=== PATIENT | female | born 1995 | race African-American/Black ===

== ENCOUNTER 2019-04-05 22:20 | Inpatient (IN) | payer MEDICAID, SELFPAY ==
[2019-04-05 22:21] VITALS: BP 118/71; PULSE 74; RESP 15; TEMP 36.9; BMI 25.0
[2019-04-06] VITALS (12 sets, daily range): BP systolic 92–131; BP diastolic 50–75; PULSE 56–86; RESP 16–22; TEMP 36.7–37.8; O2SAT 97–100; BMI 25.0; BMI 25.1
[2019-04-06] MEDS: 0.9% Normal Saline 1,000 ML 150 ML IV (00:14)
[2019-04-06] MEDS: Ondansetron 4 MG/2 ML Vial IV (00:14)
[2019-04-06] MEDS: Ketorolac 30 MG/ML Syringe IV (00:15)
[2019-04-06 00:26] LABS: Absolute Lymphocyte Count 1.06 X10^3/ul (0.83-4.51); Absolute Neutrophil Count 6.8 X10^3/uL (2.0-7.7); Basophil# 0.01 X10^3/uL; Basophil% 0.1 % (0-1); Eosinophil# 0.03 X10^3/uL; Eosinophils% 0.4 % (0-5); Hematocrit 42.4 % (37-47); Hemoglobin 13.9 g/dl (12.0-15.0); Lymphocyte # 1.06 X10^3/ul (4.0); Mean Corp Hgb Conc 32.8 g/gl (32-36); Mean Corpuscular Hgb 29.3 pg (27.0-32.0); Mean Corpuscular Volume 89.5 fL (81-99); Mean Platelet Vol. 10.1 fl (6.2-12.0); Monocyte# 0.32 X10^3/uL; Monocyte% 3.9 % (0-10); Neutrophil # 6.75 X10^3/uL (2.7-7.7); Neutrophil % 82.5 % (47-70); Platelet Count 282 K/mm3 (150-450); RBC Distribution Width CV 14.9 % (11.6-14.6); RBC Distribution Width SD 48.5 fl (35.1-43.9); Red Blood Count 4.74 M/mm3 (4.2-5.4); White Blood Count 8.2 K/mm3 (4.4-11.0)
[2019-04-06 00:30] LABS: POSITIVE COUNT NO; POSITIVE DIFFERENTIAL NO; POSITIVE MORPHOLOGY NO
[2019-04-06 00:30] LABS: Color, Urine SEE COMMENT BELOW (Yellow); Glucose, Dipstick Normal (Normal); Leukocyte Esterase-Dipstick 25 /ul (Negative); Nitrite-Dipstick Positive (Negative); Occult Blood-Urine 10 /ul (Negative); Protein-Dipstick 30 mg/dl (Negative); Specific Gravity, Urine 1.025 (1.002-1.030); Urine Bilirubin Dipstick 3 mg/dL (Negative); Urine Clarity Sl. Cloudy (Clear); Urine Urobilinogen 4 mg/dl (Normal)
[2019-04-06 00:31] LABS: Ketone-Dipstick 150 mg/dl (Negative)
[2019-04-06 00:32] LABS: Bacteria 2+ /hpf (None Seen); Hyaline Cast 0-5 SEEN /lpf (0-5); Mucous, Urine 1+ /hpf (<or=2+); Squamous Epithelial Cells - UA 5-10 SEEN /hpf (5-10); White Blood Cells 0-5 SEEN /hpf (0-5)
--- NOTE | 2019-04-06 00:32 | ED.RN ---
TOOK LAB CALL FOR 150H KETONES IN URINE FROM DIRECTOR IMAGING ADRIANA BEARD MADE AWARE, MADE AWARE
[2019-04-06 00:33] LABS: Internal QC Validated? YES +Cl - CLEAR BKGD; Pregnancy, Serum, hCG Quali. NEGATIVE Negative
[2019-04-06 00:33] LABS: Red Blood Cells-Urine 0-5 SEEN /hpf (0-5)
[2019-04-06 01:01] LABS: AST(SGOT) 242 U/L (15-37); Alanine Aminotransfer ALT/SGPT 391 U/L (13-56); Albumin, Serum 4.1 g/dL (3.2-5.0); Alkaline Phosphatase 210 U/L (45-117); Anion Gap 7 (5-15); BUN 8 mg/dL (7-18); BUN/Creat Ratio 10.3 RATIO (10-20); Bilirubin, Direct 3.89 mg/dL (0.00-0.30); Calcium,Total 9.5 mg/dL (8.5-10.1); Chloride 103 mmol/L (98-107); Creatinine, Serum 0.77 mg/dL (0.55-1.02); EST Glomerular Filtration Rate 99 mL/min (>60); Est Glom Filt Rate - Afr Amer 120 mL/min (>60); Estimated Creatinine Clearance 90.64 ml/min; Globulin 4.4 g/dL (2.2-4.2); Glucose 86 mg/dL (74-106); Potassium 3.8 mmol/L (3.5-5.1); Protein, Total 8.5 g/dL (6.4-8.2); Sodium Level 136 mmol/L (136-145)
--- NOTE | 2019-04-06 01:31 | ED.RN ---
DR VÁSQUEZ PAGED
--- NOTE | 2019-04-06 01:54 | ED.DCSUM_ITS ---
- ER Visit Summary Date of Service: 04/06/19 Chief Complaint: Abdominal pain History of Present Illness: The patient is a 24 F with upper abdominal pain for the past 2 weeks with occasional nausea and vomiting. She was seen at [place] [facility]. CT scan and ultrasound revealed gallstones. She states she is scheduled to have an MRI later this week. She had occasional chills. She is been taking ibuprofen 600 mg every 4-6 hours for pain. Physical Examination: Vital signs unremarkable. Patient sitting upright in bed no acute distress. She is nontoxic appearing. Head and neck examination is unremarkable. Heart is regular rate and rhythm. Lung sounds are clear. Abdomen is soft with mild upper abdominal tenderness. No guarding or rebound. Hypoactive bowel sounds are present. Test Results: CBC was normal white count with 82% neutrophils. Chemistry studies normal. LFTs are abnormal. Total bili is 5.40, direct bili 3.89. Alk phos is 210, ALT 391, AST 242. Lipase is 31,187. Emergency Department Course and Treatment: Patient was given Toradol, Zofran, and IV fluids. Test results were discussed with patient and family at bedside. I spoke with Dr. Lara. Patient will be admitted to his service. Treatment Plan: [] Disposition: Admit Impression: Gallstone pancreatitis This note was generated with [employer] dictation software. It may contain incorrect words, spelling, and punctuation that were not noted in review of the chart prior to signing ED Disposition - Plan for ED Patient: Referrals: [facility] Doctor,Out of [Primary Care Provider] -
--- NOTE | 2019-04-06 01:55 | HP.PCM_ITS ---
Problem List (1) Acute gallstone pancreatitis Status: Acute History of Present Illness Date of Admission: 04/06/19 The patient is a 24 year old F who presents to the [facility]'s emergency department with an acute exacerbation of upper abdominal discomfort. Patient was seen in [place]'s emergency department for worsening of her abdominal discomfort she was subsequently sent home and re-presented to the emergency department here [place]. She has had a previous ultrasound of her gallbladder completed on 03/23/2019. This was reportedly read as gallstones no pericholecystic fluid no wall thickening and the common bile duct was 9 mm. There was no intra-or extrahepatic biliary ductal dilatation. Tonight her pain got acutely worse she was experiencing some nausea and vomiting and chills as well. Work-up in the emergency department showed that she had a lipase of 31,187 and a total bilirubin of 5.4 with a direct of 3.89. Her alkaline phosphatase was also elevated at 210. She has been giving IV hydration as well as some pain medication which has helped with her abdominal discomfort. Patient was actually scheduled to see a surgeon in [place] this coming week. Past Medical History Allergies No Known Allergies Allergy (Verified 04/05/19 22:24) Surgical History: no surgical history Smoking Status: Never smoker - *Family History Maternal History Items: No pertinent history Review of Systems Constitutional: Reports: Chills. Denies: Fever Eyes: Denies: Blurred vision, Pain, Redness, Vision Change HEENT: Denies: Dysphasia, Ear Pain, Eye Pain, Head Aches, Hearing Changes, Sore Throat Cardiovascular: Denies: Chest Pain, Chest Pressure, Chest Tightness, Palpitations Respiratory: Denies: Cough, Hemoptysis, Shortness of breath at rest, Shortness of breath upon exertion, Wheezing Gastrointestinal: Reports: Abdominal Pain, Melena, Vomiting Genitourinary: Denies: Dysuria, Frequency, Hematuria, Urgency Musculoskeletal: Denies: Joint Pain Skin: Denies: Lesions, Rash, Wounds Neurological: Denies: Change in Speech, Confusion, Numbness, Tingling, Seizures Hematologic/ Lymphatic: Denies: Adenopathy, Easy Bruising VTE Information - Inpt Only VTE Present on Admission: No VTE Mechan Device Prophylaxis: SCD's VTE Pharm Prophylaxis ordered?: No Reason prophylaxis not ordered:: Treatment Not Indicated Patient Problems: Active and Suspected Problems Acute gallstone pancreatitis (Acute) - Physical Exam General: Alert, Oriented x3 HEENT: Atraumatic, PERRLA, EOMI, Normocephalic, - - Scleral icterus is noted Oral: Moist Mucosa Neck: Supple, No JVD Lungs: Clear to auscultation Cardiovascular: Regular rate, Regular Rhythm, No murmurs Abdomen: Bowel Sounds Present, Soft, Non Tender, Non-Distended Extremities: No clubbing, No cyanosis, No edema Skin: No rashes, No breakdown Musculoskeletal: No Tenderness to Palpation of Joints or Extremities Lymphatic: No Cervical, Supraclavicular, or Inguinal Adenopathy Neurological: Cranial nerves II-XII grossly intact Psych/Mental Status: Normal Affect, Appropriate Vital Signs Temp Pulse Resp BP Pulse Ox 98.5 F 63 16 115/75 100 04/05/19 22:21 04/06/19 01:21 04/06/19 01:21 04/06/19 01:21 04/06/19 01:21 Oxygen Delivery Method Room Air Weight: 136 lb 10.986 oz Body Mass Index (BMI) 25.0 Laboratory Tests Past 24 Hrs 04/06/19 04/06/19 04/06/19 00:05 00:05 00:05 WBC 8.2 RBC 4.74 Hgb 13.9 Hct 42.4 MCV 89.5 MCH 29.3 MCHC 32.8 RDW 14.9 H RDW Differential 48.5 H Plt Count 282 MPV 10.1 Immature Gran % (Auto) 0.100 Neut % (Auto) 82.5 H Lymph % (Auto) 13.0 L [place] % (Auto) 3.9 Eos % (Auto) 0.4 Baso % (Auto) 0.1 Absolute Neuts (auto) 6.8 Absolute Lymphs (auto) 1.06 Total Counted Not Reportable Sodium 136 Potassium 3.8 Chloride 103 Carbon Dioxide 26.0 Anion Gap 7 BUN 8 Creatinine 0.77 Estim Creat Clear Calc 90.64 Est GFR (MDRD) Af Amer 120 Est GFR (MDRD) Non-Af 99 BUN/Creatinine Ratio 10.3 Glucose 86 Calcium 9.5 Total Bilirubin 5.40 H Direct Bilirubin 3.89 H AST 242 H ALT 391 H Alkaline Phosphatase 210 H Total Protein 8.5 H Albumin 4.1 Globulin 4.4 H Lipase 14605 H Serum , Qual NEGATIVE Urine Color Urine Clarity Urine pH Ur Specific [place] Urine Protein Urine Glucose (UA) Urine Ketones Urine Occult Blood Urine Nitrite Urine Bilirubin Urine Urobilinogen Ur Leukocyte Esterase Urine RBC Urine WBC Ur Squamous Epith Cells Urine Bacteria Hyaline Casts Urine Mucus 04/06/19 00:10 WBC RBC Hgb Hct MCV MCH MCHC RDW RDW Differential Plt Count MPV Immature Gran % (Auto) Neut % (Auto) Lymph % (Auto) [place] % (Auto) Eos % (Auto) Baso % (Auto) Absolute Neuts (auto) Absolute Lymphs (auto) Total Counted Sodium Potassium Chloride Carbon Dioxide Anion Gap BUN Creatinine Estim Creat Clear Calc Est GFR (MDRD) Af Amer Est GFR (MDRD) Non-Af BUN/Creatinine Ratio Glucose Calcium Total Bilirubin Direct Bilirubin AST ALT Alkaline Phosphatase Total Protein Albumin Globulin Lipase Serum , Qual Urine Color SEE COMMENT BELOW Urine Clarity Sl. Cloudy Urine pH 5.0 Ur Specific [place] 1.025 Urine Protein 30 H Urine Glucose (UA) Normal Urine Ketones 150 H Urine Occult Blood 10 H Urine Nitrite Positive H Urine Bilirubin 3 H Urine Urobilinogen 4 H Ur Leukocyte Esterase 25 H Urine RBC 0-5 SEEN Urine WBC 0-5 SEEN Ur Squamous Epith Cells 5-10 SEEN Urine Bacteria 2+ Hyaline Casts 0-5 SEEN Urine Mucus 1+ Assessment/Plan All Active Problems Acute gallstone pancreatitis (Acute) We will admit the patient tonight started on IV hydrations. I do not think were dealing with cholangitis at this point and I do not think we are going to give her any antibiotics. Hopefully we will notice that her pancreatitis does down and I think that she is going to have to have an ERCP prior to undergoing a laparoscopic cholecystectomy. I have explained the order of events that I think is probably going to have to happen here she understands. All questions asked were answered.
--- NOTE | 2019-04-06 02:17 | CPS ---
Pt. could only do three attempts in E.R.; complained of minor ache in abdominal region when doing I.S.
[2019-04-06] MEDS: Lactated Ringers 1,000 ML 125 ML IV ×4 (02:44→17:34)
[2019-04-06] MEDS: HYDROmorphone 1 MG/ML Syringe IV ×3 (02:44→07:44)
[2019-04-06] MEDS: 0.9% NaCl Peripheral Flush Adult/Peds IV ×2 (04:32→07:44)
[2019-04-06 05:50] LABS: ALB/GLOB Ratio 0.9 RATIO (0.9-2.4); AST(SGOT) 199 U/L (15-37); Alanine Aminotransfer ALT/SGPT 318 U/L (13-56); Albumin, Serum 3.2 g/dL (3.2-5.0); Alkaline Phosphatase 186 U/L (45-117); Anion Gap 10 (5-15); BUN 10 mg/dL (7-18); BUN/Creat Ratio 18.3 RATIO (10-20); Calcium,Total 8.4 mg/dL (8.5-10.1); Chloride 108 mmol/L (98-107); Creatinine, Serum 0.55 mg/dL (0.55-1.02); EST Glomerular Filtration Rate 148 mL/min (>60); Est Glom Filt Rate - Afr Amer 179 mL/min (>60); Estimated Creatinine Clearance 126.89 ml/min; Globulin 3.6 g/dL (2.2-4.2); Glucose 82 mg/dL (74-106); Potassium 3.9 mmol/L (3.5-5.1); Protein, Total 6.8 g/dL (6.4-8.2); Sodium Level 142 mmol/L (136-145)
--- NOTE | 2019-04-06 06:58 | PCM.PN.SRG ---
Patient Problems: Active and Suspected Problems Acute gallstone pancreatitis (Acute) Subjective: Patient was evaluated resting in bed. She rates her pain at a 9 out of 10. She notes the pain has not improved since yesterday. Patient denies nausea, vomiting. - Physical Exam General: Alert, Oriented x3, Cooperative Abdomen: Soft - slightly, Hypoactive Bowel Sounds, Distended, Tender - upper abdomen, right and left upper quadrant Vital Signs Temp Pulse Resp BP Pulse Ox 98.4 F 61 16 116/63 98 04/06/19 02:43 04/06/19 04:30 04/06/19 02:43 04/06/19 04:30 04/06/19 02:43 Oxygen Delivery Method Room Air Weight: 137 lb 9.095 oz Body Mass Index (BMI) 25.1 Intake and Output for Last 24 Hours 04/04/19 04/05/19 04/06/19 23:59 23:59 23:59 Intake Total 361 / 361 Balance 361 / 361 Laboratory Tests Past 24 Hrs 04/06/19 04/06/19 04/06/19 00:05 00:05 00:05 WBC 8.2 RBC 4.74 Hgb 13.9 Hct 42.4 MCV 89.5 MCH 29.3 MCHC 32.8 RDW 14.9 H RDW Differential 48.5 H Plt Count 282 MPV 10.1 Immature Gran % (Auto) 0.100 Neut % (Auto) 82.5 H Lymph % (Auto) 13.0 L [place] % (Auto) 3.9 Eos % (Auto) 0.4 Baso % (Auto) 0.1 Absolute Neuts (auto) 6.8 Absolute Lymphs (auto) 1.06 Total Counted Not Reportable Sodium 136 Potassium 3.8 Chloride 103 Carbon Dioxide 26.0 Anion Gap 7 BUN 8 Creatinine 0.77 Estim Creat Clear Calc 90.64 Est GFR (MDRD) Af Amer 120 Est GFR (MDRD) Non-Af 99 BUN/Creatinine Ratio 10.3 Glucose 86 Calcium 9.5 Total Bilirubin 5.40 H Direct Bilirubin 3.89 H AST 242 H ALT 391 H Alkaline Phosphatase 210 H Total Protein 8.5 H Albumin 4.1 Globulin 4.4 H Albumin/Globulin Ratio Lipase 09953 H Serum , Qual NEGATIVE Urine Color Urine Clarity Urine pH Ur Specific [place] Urine Protein Urine Glucose (UA) Urine Ketones Urine Occult Blood Urine Nitrite Urine Bilirubin Urine Urobilinogen Ur Leukocyte Esterase Urine RBC Urine WBC Ur Squamous Epith Cells Urine Bacteria Hyaline Casts Urine Mucus 04/06/19 04/06/19 00:10 05:10 WBC RBC Hgb Hct MCV MCH MCHC RDW RDW Differential Plt Count MPV Immature Gran % (Auto) Neut % (Auto) Lymph % (Auto) [place] % (Auto) Eos % (Auto) Baso % (Auto) Absolute Neuts (auto) Absolute Lymphs (auto) Total Counted Sodium 142 Potassium 3.9 Chloride 108 H Carbon Dioxide 24.0 Anion Gap 10 BUN 10 Creatinine 0.55 Estim Creat Clear Calc 126.89 Est GFR (MDRD) Af Amer 179 Est GFR (MDRD) Non-Af 148 BUN/Creatinine Ratio 18.3 Glucose 82 Calcium 8.4 L Total Bilirubin 4.90 H Direct Bilirubin AST 199 H ALT 318 H Alkaline Phosphatase 186 H Total Protein 6.8 Albumin 3.2 Globulin 3.6 Albumin/Globulin Ratio 0.9 Lipase Serum , Qual Urine Color SEE COMMENT BELOW Urine Clarity Sl. Cloudy Urine pH 5.0 Ur Specific [place] 1.025 Urine Protein 30 H Urine Glucose (UA) Normal Urine Ketones 150 H Urine Occult Blood 10 H Urine Nitrite Positive H Urine Bilirubin 3 H Urine Urobilinogen 4 H Ur Leukocyte Esterase 25 H Urine RBC 0-5 SEEN Urine WBC 0-5 SEEN Ur Squamous Epith Cells 5-10 SEEN Urine Bacteria 2+ Hyaline Casts 0-5 SEEN Urine Mucus 1+ Medical Necessity - Tobacco Use Smoking Status: Never smoker Assessment/Plan All Active Problems Acute gallstone pancreatitis (Acute) I am following this patient with Dr. Lara Acute gallstone pancreatitis Discussed patient with Dr. Lara Will also discuss patient with Dr. Smalls for possible ERCP at some point Continue NPO status given acute pancreatitis Will recheck lipase level Bilirubin decreased slightly We will continue to monitor this patient Code Visit Inpatient E&M: 96188 Subs Hosp L1
[2019-04-06 11:00] LABS: Lipase 22292 U/L (73-393)
--- NOTE | 2019-04-06 11:06 | CASEMGMT ---
ADRIANA JARVIS assessment: Face to Face with patient for initial transition planning/care coordination assessment. ADRIANA JARVIS introduced self and role at [facility], pt voices understanding and consents to assessment at this time. Pt is sitting up in bed in no distress at this time. Pt is A/Ox4 at this time and answers all questions appropriately at this time. Care providers, pharmacy, and demographics verified at this time. PCP: Ann Cabrera in [place] Specialists: Pt states currently has no specialists. Preferred Pharmacy: [facility] [place] Insurance: [facility] Prescription Benefit: ParaMCD Living Will/HPOA: Pt states does not have LW/HPOA and declines info at this time. LNOK: Jesusita Rand, grandmother Living Arrangements: Pt states lives with her sister in apt with 2 steps into bedroom and states no concerns at home at this time. Pt is independent with ADL's. Transportation: Pt states she walks places or [address] [employer] drives and states no transportation concerns at this time. DME/HHC: Pt states no current DME or need for any at this time. Pt states no hx of HHC or SNF in the past. Pt states no concerns with going home at time of discharge. Pt states is currently unemployed. Pt states does not smoke or drink ETOH. Pt states no further concerns/needs at this time. CM to follow for any further discharge planning/needs. Advised pt to ask for CM if any further questions/concerns/needs arise, voices understanding. Pt Goal: Home Plan[place] ADRIANA JARVIS
--- NOTE | 2019-04-06 13:56 | PCM.PN.SRG ---
Patient Problems: Active and Suspected Problems Acute gallstone pancreatitis (Acute) Subjective: Patient complains of epigastric pain. No nausea or vomiting. No fevers or chills. - Physical Exam General: Alert, Cooperative HEENT: Atraumatic Lungs: Normal air movement Cardiovascular: Regular rate, Regular Rhythm Abdomen: Soft, Non-Distended, Tender - Epigastric tenderness Vital Signs Temp Pulse Resp BP Pulse Ox 98.5 F 66 16 112/62 97 04/06/19 07:33 04/06/19 07:33 04/06/19 07:33 04/06/19 07:33 04/06/19 07:33 Oxygen Delivery Method Room Air Weight: 137 lb 9.095 oz Body Mass Index (BMI) 25.1 Intake and Output for Last 24 Hours 04/04/19 04/05/19 04/06/19 23:59 23:59 23:59 Intake Total 1225 / 1225 Output Total 0 / 0 Balance 1225 / 1225 Laboratory Tests Past 24 Hrs 04/06/19 04/06/19 04/06/19 00:05 00:05 00:05 WBC 8.2 RBC 4.74 Hgb 13.9 Hct 42.4 MCV 89.5 MCH 29.3 MCHC 32.8 RDW 14.9 H RDW Differential 48.5 H Plt Count 282 MPV 10.1 Immature Gran % (Auto) 0.100 Neut % (Auto) 82.5 H Lymph % (Auto) 13.0 L [place] % (Auto) 3.9 Eos % (Auto) 0.4 Baso % (Auto) 0.1 Absolute Neuts (auto) 6.8 Absolute Lymphs (auto) 1.06 Total Counted Not Reportable Sodium 136 Potassium 3.8 Chloride 103 Carbon Dioxide 26.0 Anion Gap 7 BUN 8 Creatinine 0.77 Estim Creat Clear Calc 90.64 Est GFR (MDRD) Af Amer 120 Est GFR (MDRD) Non-Af 99 BUN/Creatinine Ratio 10.3 Glucose 86 Calcium 9.5 Total Bilirubin 5.40 H Direct Bilirubin 3.89 H AST 242 H ALT 391 H Alkaline Phosphatase 210 H Total Protein 8.5 H Albumin 4.1 Globulin 4.4 H Albumin/Globulin Ratio Lipase 77806 H Serum , Qual NEGATIVE Urine Color Urine Clarity Urine pH Ur Specific [place] Urine Protein Urine Glucose (UA) Urine Ketones Urine Occult Blood Urine Nitrite Urine Bilirubin Urine Urobilinogen Ur Leukocyte Esterase Urine RBC Urine WBC Ur Squamous Epith Cells Urine Bacteria Hyaline Casts Urine Mucus 04/06/19 04/06/19 04/06/19 00:10 05:10 05:10 WBC RBC Hgb Hct MCV MCH MCHC RDW RDW Differential Plt Count MPV Immature Gran % (Auto) Neut % (Auto) Lymph % (Auto) [place] % (Auto) Eos % (Auto) Baso % (Auto) Absolute Neuts (auto) Absolute Lymphs (auto) Total Counted Sodium 142 Potassium 3.9 Chloride 108 H Carbon Dioxide 24.0 Anion Gap 10 BUN 10 Creatinine 0.55 Estim Creat Clear Calc 126.89 Est GFR (MDRD) Af Amer 179 Est GFR (MDRD) Non-Af 148 BUN/Creatinine Ratio 18.3 Glucose 82 Calcium 8.4 L Total Bilirubin 4.90 H Direct Bilirubin AST 199 H ALT 318 H Alkaline Phosphatase 186 H Total Protein 6.8 Albumin 3.2 Globulin 3.6 Albumin/Globulin Ratio 0.9 Lipase 66310 H Serum , Qual Urine Color SEE COMMENT BELOW Urine Clarity Sl. Cloudy Urine pH 5.0 Ur Specific [place] 1.025 Urine Protein 30 H Urine Glucose (UA) Normal Urine Ketones 150 H Urine Occult Blood 10 H Urine Nitrite Positive H Urine Bilirubin 3 H Urine Urobilinogen 4 H Ur Leukocyte Esterase 25 H Urine RBC 0-5 SEEN Urine WBC 0-5 SEEN Ur Squamous Epith Cells 5-10 SEEN Urine Bacteria 2+ Hyaline Casts 0-5 SEEN Urine Mucus 1+ Medical Necessity - Tobacco Use Smoking Status: Never smoker Assessment/Plan All Active Problems Acute gallstone pancreatitis (Acute) 24-year-old female with gallstone pancreatitis 1. Patient reports she has been having problems with this for weeks. She was scheduled to have cholecystectomy last week. On March 22 of this year she presented to an emergency room and had elevated LFTs at that time with a dilated common bile duct. Nothing was done after this. She presents after pain worsened last night with a significantly elevated lipase as well as elevated bilirubin and liver enzymes. These were repeated in the morning and stayed elevated. 2. Recommend ERCP to ensure that the bile duct is free of stones to allow the pancreatitis to resolve quicker. Then I would recommend laparoscopic cholecystectomy during this hospitalization to remove the gallbladder. I explained ERCP in detail to the patient. I explained the risks including but not limited to bleeding, infection, perforation of the bile duct or bowels, worsening of pancreatitis. I also explained the possibility of placing a biliary stent if there were retained stones. The patient understands the procedure and is willing to proceed. Plan for ERCP this afternoon. Roamn Smalls MD Pager: [facility] [address] [place] [address] [address] [place] [address] Office:
--- NOTE | 2019-04-06 14:04 | PN.SURG_ITS ---
Patient Problems: Active and Suspected Problems Acute gallstone pancreatitis (Acute) Subjective: Patient complains of epigastric pain. No nausea or vomiting. No fevers or chills. - Physical Exam General: Alert, Cooperative HEENT: Atraumatic Lungs: Normal air movement Cardiovascular: Regular rate, Regular Rhythm Abdomen: Soft, Non-Distended, Tender - Epigastric tenderness Vital Signs Temp Pulse Resp BP Pulse Ox 98.5 F 66 16 112/62 97 04/06/19 07:33 04/06/19 07:33 04/06/19 07:33 04/06/19 07:33 04/06/19 07:33 Oxygen Delivery Method Room Air Weight: 137 lb 9.095 oz Body Mass Index (BMI) 25.1 Intake and Output for Last 24 Hours 04/04/19 04/05/19 04/06/19 23:59 23:59 23:59 Intake Total 1225 / 1225 Output Total 0 / 0 Balance 1225 / 1225 Laboratory Tests Past 24 Hrs 04/06/19 04/06/19 04/06/19 00:05 00:05 00:05 WBC 8.2 RBC 4.74 Hgb 13.9 Hct 42.4 MCV 89.5 MCH 29.3 MCHC 32.8 RDW 14.9 H RDW Differential 48.5 H Plt Count 282 MPV 10.1 Immature Gran % (Auto) 0.100 Neut % (Auto) 82.5 H Lymph % (Auto) 13.0 L [place] % (Auto) 3.9 Eos % (Auto) 0.4 Baso % (Auto) 0.1 Absolute Neuts (auto) 6.8 Absolute Lymphs (auto) 1.06 Total Counted Not Reportable Sodium 136 Potassium 3.8 Chloride 103 Carbon Dioxide 26.0 Anion Gap 7 BUN 8 Creatinine 0.77 Estim Creat Clear Calc 90.64 Est GFR (MDRD) Af Amer 120 Est GFR (MDRD) Non-Af 99 BUN/Creatinine Ratio 10.3 Glucose 86 Calcium 9.5 Total Bilirubin 5.40 H Direct Bilirubin 3.89 H AST 242 H ALT 391 H Alkaline Phosphatase 210 H Total Protein 8.5 H Albumin 4.1 Globulin 4.4 H Albumin/Globulin Ratio Lipase 71739 H Serum , Qual NEGATIVE Urine Color Urine Clarity Urine pH Ur Specific [place] Urine Protein Urine Glucose (UA) Urine Ketones Urine Occult Blood Urine Nitrite Urine Bilirubin Urine Urobilinogen Ur Leukocyte Esterase Urine RBC Urine WBC Ur Squamous Epith Cells Urine Bacteria Hyaline Casts Urine Mucus 04/06/19 04/06/19 04/06/19 00:10 05:10 05:10 WBC RBC Hgb Hct MCV MCH MCHC RDW RDW Differential Plt Count MPV Immature Gran % (Auto) Neut % (Auto) Lymph % (Auto) [place] % (Auto) Eos % (Auto) Baso % (Auto) Absolute Neuts (auto) Absolute Lymphs (auto) Total Counted Sodium 142 Potassium 3.9 Chloride 108 H Carbon Dioxide 24.0 Anion Gap 10 BUN 10 Creatinine 0.55 Estim Creat Clear Calc 126.89 Est GFR (MDRD) Af Amer 179 Est GFR (MDRD) Non-Af 148 BUN/Creatinine Ratio 18.3 Glucose 82 Calcium 8.4 L Total Bilirubin 4.90 H Direct Bilirubin AST 199 H ALT 318 H Alkaline Phosphatase 186 H Total Protein 6.8 Albumin 3.2 Globulin 3.6 Albumin/Globulin Ratio 0.9 Lipase 20794 H Serum , Qual Urine Color SEE COMMENT BELOW Urine Clarity Sl. Cloudy Urine pH 5.0 Ur Specific [place] 1.025 Urine Protein 30 H Urine Glucose (UA) Normal Urine Ketones 150 H Urine Occult Blood 10 H Urine Nitrite Positive H Urine Bilirubin 3 H Urine Urobilinogen 4 H Ur Leukocyte Esterase 25 H Urine RBC 0-5 SEEN Urine WBC 0-5 SEEN Ur Squamous Epith Cells 5-10 SEEN Urine Bacteria 2+ Hyaline Casts 0-5 SEEN Urine Mucus 1+ Medical Necessity - Tobacco Use Smoking Status: Never smoker Assessment/Plan All Active Problems Acute gallstone pancreatitis (Acute) 24-year-old female with gallstone pancreatitis 1. Patient reports she has been having problems with this for weeks. She was scheduled to have cholecystectomy last week. On March 22 of this year she presented to an emergency room and had elevated LFTs at that time with a dilated common bile duct. Nothing was done after this. She presents after pain worsened last night with a significantly elevated lipase as well as elevated bilirubin and liver enzymes. These were repeated in the morning and stayed elevated. 2. Recommend ERCP to ensure that the bile duct is free of stones to allow the pancreatitis to resolve quicker. Then I would recommend laparoscopic cholecystectomy during this hospitalization to remove the gallbladder. I explained ERCP in detail to the patient. I explained the risks including but not limited to bleeding, infection, perforation of the bile duct or bowels, worsening of pancreatitis. I also explained the possibility of placing a biliary stent if there were retained stones. The patient understands the procedure and is willing to proceed. Plan for ERCP this afternoon. Roman Smalls MD Pager: [facility] [address] [place] [address] [address] [place] [address] Office:
--- NOTE | 2019-04-06 14:35 | NURSING ---
Report called to Sandi WRIGHT, including ATB was sent in pt's chart with pt.
--- NOTE | 2019-04-06 15:30 | RAD_ITS ---
HISTORY: acute gallstone pancreatitisseveral stones came out of duct during ERCP EXAM/TECHNIQUE: [place] ERCP Biliary Ductal System: COMPARISON: None. FINDINGS: # of images incl. paperwork: 2 Single image from ERCP. Common bile duct dilated. Fluoroscopy time 100.9 seconds. 19.2 mg. RAD/ERCP Biliary Only IMPRESSION: ERCP as above. at 7802 Reported and signed by: Gustavo Vidal MD Electronically Signed: Gustavo Vidal, at 17:01 EDT Tel , Service support ,
--- NOTE | 2019-04-06 15:30 | GALL_PTH ---
PATIENT: HEDY GALLEGOS LOC: PCU U#:[id number] AGE/SX: 24/F ROOM: [facility] RE04/06/[address]: Dr. David Lara MD : 1995 BED: 1 DIS: 04/09/2019 SPEC #: [id number] RECD: 04/08/19 12:55 STATUS: MAYLIN REQ #: [id number] UDNIA: 04/06/19 15:[address]: David Lara DEPT: SURGICAL PATHOLOGY RECD BY: Jarvis Combs ENTERED: 04/08/19 13:36 SP TYPE: IGNACIA WILSON DR: Out of [facility] Doctor Tissues: Gallbladder, NOS Procedures: Surgery Specimen Level III HEADER OPERATION: ERCP PRE-OP DIAGNOSIS: Gallstone pancreatitis; obstructive jaundice TISSUE SUBMITTED: Gallbladder MICROSCOPIC DIAGNOSIS Gallbladder, cholecystectomy: Chronic cholecystitis. AM:catrachito 04/11/19 MICROSCOPIC DESCRIPTION Slides are reviewed. GROSS DESCRIPTION Received is one container labeled with the patient's name and designated gallbladder. The specimen consists of a gallbladder measuring 10 x 2.2 x 2.2 cm. The external surface is smooth and glistening. Focally, it is granular, hemorrhagic and contains cautery artifact. The lumen of the gallbladder contains yellow-green mucoid bile and multiple yellow stones ranging in size from <0.1 to 0.4 cm. The mucosa is bile-stained and without any mass lesions. The gallbladder wall averages 0.2 cm in thickness and is free of mass lesions. Hide Dropper sections of the gallbladder and the cystic duct are submitted in one cassette. / AM:catrachito 04/08/19 TC:3 CPT: 53363
--- NOTE | 2019-04-06 16:28 | OP.ENDO_ITS ---
04/06/2019 Out Of [facility] Doctor Re : ERCP procedure for Shirlene Rand Dear [facility] Doctor This procedure was performed on Saturday, April 06, 2019. My impressions and recommendations are as follows: Impressions : - The major papilla appeared to be bulging. - A biliary tract obstruction was found in the lower third of the main duct. - Choledocholithiasis with an obstruction was found. Complete removal was accomplished by biliary sphincterotomy and balloon extraction. - A biliary sphincterotomy was performed. - The biliary tree was swept. Recommendations : - Observe patient's clinical course. My findings are described in the full procedure note, which is enclosed. If I can be of further assistance, please feel free to contact me at Doctor phone number(s): , Work: . Sincerely, Roman Smalls MD 04/06/2019 4:27:40 PM This report has been signed electronically.
--- NOTE | 2019-04-06 23:32 | NURSING ---
Report given to Lavinia Bowie RN. She will resume care of pt at this time.
[2019-04-07 00:12] VITALS: BP 113/54; PULSE 81; RESP 18; TEMP 36.9; O2SAT 97
[2019-04-07] MEDS: Lactated Ringers 1,000 ML 125 ML IV ×3 (01:14→17:31)
[2019-04-07 04:20] VITALS: BP 104/51; PULSE 65; RESP 16; TEMP 36.7; O2SAT 98
[2019-04-07 07:49] LABS: Hematocrit 33.3 % (37-47); Mean Corpuscular Hgb 29.6 pg (27.0-32.0); Mean Corpuscular Volume 89.8 fL (81-99); Mean Platelet Vol. 10.5 fl (6.2-12.0); Platelet Count 215 K/mm3 (150-450); RBC Distribution Width CV 14.9 % (11.6-14.6); RBC Distribution Width SD 48.2 fl (35.1-43.9); Red Blood Count 3.71 M/mm3 (4.2-5.4); White Blood Count 6.1 K/mm3 (4.4-11.0)
[2019-04-07 07:55] LABS: Scan Indicated on CBC? Y/N NO
[2019-04-07 08:28] LABS: ALB/GLOB Ratio 0.9 RATIO (0.9-2.4); AST(SGOT) 106 U/L (15-37); Alanine Aminotransfer ALT/SGPT 227 U/L (13-56); Albumin, Serum 2.9 g/dL (3.2-5.0); Alkaline Phosphatase 176 U/L (45-117); Anion Gap 7 (5-15); BUN 6 mg/dL (7-18); BUN/Creat Ratio 9.7 RATIO (10-20); Calcium,Total 8.4 mg/dL (8.5-10.1); Chloride 108 mmol/L (98-107); Creatinine, Serum 0.62 mg/dL (0.55-1.02); EST Glomerular Filtration Rate 128 mL/min (>60); Est Glom Filt Rate - Afr Amer 155 mL/min (>60); Estimated Creatinine Clearance 112.57 ml/min; Globulin 3.4 g/dL (2.2-4.2); Glucose 63 mg/dL (74-106); Lipase 7322 U/L (73-393); Protein, Total 6.3 g/dL (6.4-8.2); Sodium Level 136 mmol/L (136-145)
--- NOTE | 2019-04-07 08:34 | PCM.PN.SRG ---
Patient Problems: Active and Suspected Problems Acute gallstone pancreatitis (Acute) Subjective: Patient is evaluated resting comfortably in bed. She notes abdominal discomfort is 3 out of 10. She denies nausea, vomiting. She is feeling better than yesterday. Dr. Smalls performed an ERCP noting the CBD was completely obstructed and removal of 4 stones was performed. - Physical Exam General: Alert, Oriented x3, Cooperative Abdomen: Soft, Hypoactive Bowel Sounds, Distended - slightly, Tender - upper abdomen, slightly Vital Signs Temp Pulse Resp BP Pulse Ox 98.1 F 65 16 104/51 L 98 04/07/19 04:20 04/07/19 04:20 04/07/19 04:20 04/07/19 04:20 04/07/19 04:20 Oxygen Delivery Method Room Air Weight: 137 lb 9.095 oz Body Mass Index (BMI) 25.1 Intake and Output for Last 24 Hours 04/05/19 04/06/19 04/07/19 23:59 23:59 23:59 Intake Total 2024 1486 / 1486 Output Total 0 / 0 350 / 350 Balance 2024 1136 / 1136 Laboratory Tests Past 24 Hrs 04/06/19 04/07/19 04/07/19 05:10 07:20 07:20 WBC 6.1 RBC 3.71 L Hgb 11.0 L Hct 33.3 L MCV 89.8 MCH 29.6 MCHC 33.0 RDW 14.9 H RDW Differential 48.2 H Plt Count 215 MPV 10.5 Sodium 136 Potassium 4.0 Chloride 108 H Carbon Dioxide 21.0 Anion Gap 7 BUN 6 L Creatinine 0.62 Estim Creat Clear Calc 112.57 Est GFR (MDRD) Af Amer 155 Est GFR (MDRD) Non-Af 128 BUN/Creatinine Ratio 9.7 L Glucose 63 L Calcium 8.4 L Total Bilirubin 2.20 H AST 106 H ALT 227 H Alkaline Phosphatase 176 H Total Protein 6.3 L Albumin 2.9 L Globulin 3.4 Albumin/Globulin Ratio 0.9 Lipase 71363 H 7322 H Medical Necessity - Tobacco Use Smoking Status: Never smoker Assessment/Plan All Active Problems Acute gallstone pancreatitis (Acute) I am following this patient with Dr. Lara Acute gallstone pancreatitis Discussed patient with Dr. Lara Continue NPO status given acute pancreatitis Labs reviewed and improving Will continue to wait for lipase level to decrease prior to gallbladder removal Possible gallbladder removal tomorrow by Dr. Lara We will continue to monitor this patient Code Visit Inpatient E&M: 95153 Subs Hosp L1 - no charge
--- NOTE | 2019-04-07 08:37 | PN.SURG_ITS ---
Patient Problems: Active and Suspected Problems Acute gallstone pancreatitis (Acute) Subjective: Patient is evaluated resting comfortably in bed. She notes abdominal discomfort is 3 out of 10. She denies nausea, vomiting. She is feeling better than yesterday. Dr. Smalls performed an ERCP noting the CBD was completely obstructed and removal of 4 stones was performed. - Physical Exam General: Alert, Oriented x3, Cooperative Abdomen: Soft, Hypoactive Bowel Sounds, Distended - slightly, Tender - upper abdomen, slightly Vital Signs Temp Pulse Resp BP Pulse Ox 98.1 F 65 16 104/51 L 98 04/07/19 04:20 04/07/19 04:20 04/07/19 04:20 04/07/19 04:20 04/07/19 04:20 Oxygen Delivery Method Room Air Weight: 137 lb 9.095 oz Body Mass Index (BMI) 25.1 Intake and Output for Last 24 Hours 04/05/19 04/06/19 04/07/19 23:59 23:59 23:59 Intake Total 2024 1486 / 1486 Output Total 0 / 0 350 / 350 Balance 2024 1136 / 1136 Laboratory Tests Past 24 Hrs 04/06/19 04/07/19 04/07/19 05:10 07:20 07:20 WBC 6.1 RBC 3.71 L Hgb 11.0 L Hct 33.3 L MCV 89.8 MCH 29.6 MCHC 33.0 RDW 14.9 H RDW Differential 48.2 H Plt Count 215 MPV 10.5 Sodium 136 Potassium 4.0 Chloride 108 H Carbon Dioxide 21.0 Anion Gap 7 BUN 6 L Creatinine 0.62 Estim Creat Clear Calc 112.57 Est GFR (MDRD) Af Amer 155 Est GFR (MDRD) Non-Af 128 BUN/Creatinine Ratio 9.7 L Glucose 63 L Calcium 8.4 L Total Bilirubin 2.20 H AST 106 H ALT 227 H Alkaline Phosphatase 176 H Total Protein 6.3 L Albumin 2.9 L Globulin 3.4 Albumin/Globulin Ratio 0.9 Lipase 46194 H 7322 H Medical Necessity - Tobacco Use Smoking Status: Never smoker Assessment/Plan All Active Problems Acute gallstone pancreatitis (Acute) I am following this patient with Dr. Lara Acute gallstone pancreatitis Discussed patient with Dr. Lara Continue NPO status given acute pancreatitis Labs reviewed and improving Will continue to wait for lipase level to decrease prior to gallbladder removal Possible gallbladder removal tomorrow by Dr. Lara We will continue to monitor this patient Code Visit Inpatient E&M: 23519 Subs Hosp L1 - no charge
[2019-04-07 10:20] VITALS: BP 106/50; PULSE 64; RESP 16; TEMP 36.9; O2SAT 99
[2019-04-07 16:20] VITALS: BP 112/67; PULSE 72; RESP 16; TEMP 36.8; O2SAT 99
[2019-04-07 21:28] VITALS: BP 116/69; PULSE 70; RESP 23; TEMP 37.2; O2SAT 99
[2019-04-07] MEDS: Ensure Clear 120 ML Liquid PO (21:38)
[2019-04-08] VITALS (15 sets, daily range): BP systolic 101–125; BP diastolic 63–84; PULSE 60–92; RESP 16–26; TEMP 36.2–38.4; O2SAT 97–100; BMI 25.7
[2019-04-08] MEDS: Lactated Ringers 1,000 ML 125 ML IV ×4 (02:28→21:44)
--- NOTE | 2019-04-08 05:55 | EKG12_ITS ---
Test Reason : PRE-OP Blood Pressure : / mmHG Vent. Rate : 079 BPM Atrial Rate : 079 BPM P-R Int : 144 ms QRS Dur : 086 ms QT Int : 348 ms P-R-T Axes : 038 040 013 degrees QTc Int : 399 ms Normal sinus rhythm Nonspecific T wave abnormality Abnormal ECG No previous ECGs available Confirmed by GABRIELLA SMITH ([id number]), senior technical editor AYDEE ANNE ([id number]) on 04/11/2019 1:36:54 PM Referred By: DR VÁSQUEZ Confirmed By:JR SMITH
[2019-04-08 06:30] LABS: Absolute Lymphocyte Count 1.88 X10^3/ul (0.83-4.51); Basophil# 0.03 X10^3/uL; Basophil% 0.4 % (0-1); Eosinophils% 2.6 % (0-5); Hematocrit 35.6 % (37-47); Hemoglobin 11.7 g/dl (12.0-15.0); Lymphocyte # 1.88 X10^3/ul (4.0); Lymphocyte % 24.8 % (19-41); Mean Corp Hgb Conc 32.9 g/gl (32-36); Mean Corpuscular Hgb 29.1 pg (27.0-32.0); Mean Corpuscular Volume 88.6 fL (81-99); Mean Platelet Vol. 10.4 fl (6.2-12.0); Monocyte# 0.43 X10^3/uL; Monocyte% 5.7 % (0-10); Neutrophil # 5.03 X10^3/uL (2.7-7.7); Neutrophil % 66.4 % (47-70); Platelet Count 247 K/mm3 (150-450); RBC Distribution Width CV 14.6 % (11.6-14.6); RBC Distribution Width SD 46.8 fl (35.1-43.9); Red Blood Count 4.02 M/mm3 (4.2-5.4); White Blood Count 7.6 K/mm3 (4.4-11.0)
[2019-04-08 06:36] LABS: International Normalized Ratio 1.1; Partial Thromboplast Time 35.3 Seconds (24.1-36.2); Prothrombin Time (Protime)PT. 14.2 SECONDS (11.7-14.9)
[2019-04-08 06:48] LABS: ALB/GLOB Ratio 0.8 RATIO (0.9-2.4); AST(SGOT) 64 U/L (15-37); Alanine Aminotransfer ALT/SGPT 190 U/L (13-56); Alkaline Phosphatase 167 U/L (45-117); Anion Gap 11 (5-15); BUN 4 mg/dL (7-18); BUN/Creat Ratio 7.6 RATIO (10-20); Calcium,Total 8.7 mg/dL (8.5-10.1); Chloride 106 mmol/L (98-107); Creatinine, Serum 0.52 mg/dL (0.55-1.02); EST Glomerular Filtration Rate 156 mL/min (>60); Est Glom Filt Rate - Afr Amer 188 mL/min (>60); Estimated Creatinine Clearance 134.22 ml/min; Glucose 81 mg/dL (74-106); Phosphorus 2.8 mg/dL (2.5-4.9); Potassium 3.7 mmol/L (3.5-5.1); Sodium Level 141 mmol/L (136-145)
[2019-04-08 06:54] LABS: POSITIVE COUNT NO; POSITIVE DIFFERENTIAL NO; POSITIVE MORPHOLOGY NO
[2019-04-08 07:20] LABS: Lipase 1232 U/L (73-393)
[2019-04-08] MEDS: Cefazolin 1 GM/50 ML BAG IV ×2 (09:01→10:12)
--- NOTE | 2019-04-08 10:11 | OP.PCM_ITS ---
Problem List (1) Acute gallstone pancreatitis Status: Acute Report of Operation Date of Procedure: 04/08/19 Pre-Operative Diagnosis: Acute gallstone pancreatitis Post-Operative Diagnosis: Same Surgery/Procedure Performed:: Laparoscopic cholecystectomy Type of Anesthesia:: General Anesthesiologist: Luciano Brown Specimen's removed: Gallbladder Estimated Blood Loss (mL): < 25 cc Fluids Replaced: 700 cc LR Description of Procedure: Patient was brought to the operating room placed in the supine position. Under excellent general trach intubation the abdomen was sterilely prepped and draped in the usual fashion. Local was injected infra umbilically. Dissection was carried down to the fascia. The fascia was grasped with a [place]. Varies needle was placed inside the abdomen. The abdomen was insufflated to 15 torr. A 10/12 trocar was placed without difficulty. Patient was placed in the head up and rotated to the left position. A subxiphoid #5 trocar was placed, inferior to this another #5 trocar was placed, laterally a #5 trocar was placed. All these under direct visualization without injury to underlying structures. Fundus of the gallbladder was grasped retracted in cephalad direction. I took down moderate amount of adhesions from the liver and gallbladder. He did this with electrocautery. Infundibulum was grasped retracted laterally and dissected out the cystic duct. I placed hemoclips proximally and distally and ligated the duct. Identified the cystic artery. I placed hemoclips proximally and distally and ligated the artery. Deliver the gallbladder from gallbladder bed with use of electrocautery. I had good hemostasis. I removed the gallbladder through the umbilical port without difficulty. I reinflated the abdomen. I inspected the liver bed. I did use more electrocautery on the liver bed and laterally where 1 of the adhesions had torn off I did obtain good hemostasis. I removed the trochars under direct visualization. Good hemostasis was noted. To close the fascia the umbilical port with a figure stitch of 0 Vicryl under direct visualization. Skin incisions were closed with a particular stitches of 4-0 Monocryl. Steri-Strips were applied. Sterile dressings were applied. The patient tolerated the procedure well. - Admit VTE Documentation VTE Present on Admission: No VTE Mechan Device Prophylaxis: SCD's VTE Pharm Prophylaxis ordered?: No Reason prophylaxis not ordered:: Treatment Not Indicated
--- NOTE | 2019-04-08 10:12 | PCM.DC.GB ---
Discharge Diet: Light diet - advance as tolerated Discharge Activity: May Not Drive - for 2-3 days or while taking narcotic pain medications., - - Do not drive, work heavy equipment or sign legal documents for 24 hours. May shower in (days): 1 - with the bandage in place. Additional Activity Instructions:: Pain medication may cause nausea. You should typically eat light foods as you take your pain medications. Pain medication may also cause constipation. If this is a problem for you, please discuss with your doctor. Call your doctor if your incision/area has: Continuous Slow Oozing, Sudden Increased Bleeding, Increased Pain/ Swelling, Increased Redness, Foul Smelling Discharge Call your doctor if you observe: Fever of 101 or Higher Suture Line Care: Avoid Pulling/Pushing, Avoid Pinching/Bending Additional Dressing/Incision Instructions:: Leave operative bandaids on for 2 days. When you remove dressing, leave Steri-Strips on until your follow-up appointment, or until the Steri-Strips fall off on their own. Allergies/Adverse Reactions: Allergies No Known Allergies Allergy (Verified 04/05/19 22:24) Medications to take at Discharge Ibuprofen [Motrin] 600 mg PO Q4H PRN 04/06/19 Oxycodone HCl/Acetaminophen [Percocet 5/325] 1 - 2 tab PO Q4H PRN PRN 6 Days #30 tab 04/08/19 The following prescriptions were given: Oxycodone HCl/Acetaminophen [Percocet 5/325] 1 - 2 tab PO Q4H PRN PRN 6 Days #30 tab PRN Reason: Pain Primary Care Physician: [facility] ,Out of [Primary Care Provider] - Test Results: Test results from this visit will be discussed in further detail at your follow-up appointment, if applicable. Please Follow Up With: David Lara MD - Please call [phone] to schedule an appointment. When: 7 days after your surgery.
[2019-04-08] MEDS: oxyCODONE 5 MG Tablet PO (17:32)
[2019-04-08] MEDS: Ensure Clear 120 ML Liquid PO ×2 (17:45→21:41)
[2019-04-09 01:27] VITALS: BP 110/80; PULSE 75; RESP 16; TEMP 37.3; O2SAT 96
[2019-04-09 05:27] VITALS: BP 127/76; PULSE 67; RESP 16; TEMP 37.2; O2SAT 97
[2019-04-09] MEDS: Lactated Ringers 1,000 ML 125 ML IV (05:31)
[2019-04-09] MEDS: Ensure Clear 120 ML Liquid PO (08:41)
[2019-04-09 08:43] VITALS: BP 117/73; PULSE 79; RESP 15; TEMP 36.9; O2SAT 96
[2019-04-09 09:28] VITALS: BP 117/73; PULSE 79; RESP 15; TEMP 36.9; O2SAT 96
== END 2019-04-09 11:58 | disposition home or self-care (01) | DRG 263 ==
LOC: ED 04-06 01:49 → PCU 04-06 02:09
PROVIDERS: Physician Assistant; Surgery; Admitting Provider Surgery; Emergency Provider Emergency Medicine; Visit Provider Surgery
PROC: 0FC98ZZ Extirpation of Matter from Common Bile Duct, Via Natural or Artificial Opening Endoscopic (ICD-10-PCS; CPT 43260; principal; 2019-04-06 15:00)
PROC: 0FT44ZZ Resection of Gallbladder, Percutaneous Endoscopic Approach (ICD-10-PCS; principal; 2019-04-08 09:50)
DX: K85.10 Biliary acute pancreatitis without necrosis or infection (principal); K80.51 Calculus of bile duct without cholangitis or cholecystitis with obstruction
CPT/HCPCS: 36415; 74328; 76000; 80048; 80053; 80076; 81001; 83690; 83735; 84100; 84703; 85025; 85027; 85610; 85730; 87086; 87088; 88304; 93005; 97802; 99284; J7030; J7120; A4216; J2405